=== PATIENT | male | born 1995 | race Caucasian/White ===

== ENCOUNTER 2024-12-21 01:44 | Emergency (ER) | payer MEDICAID ==
[~2024-12-21] VITALS: Ht 190.5 cm; Wt 83.2 kg
--- NOTE | 2024-12-21 01:58 | Physician Documentation ---
History of Present Illness ~ Chief Complaint: Abdominal Pain Stated Complaint: ABDOMINAL PAIN Time Seen by MD: 01:58 HPI Patient presents to the emergency room with right lower quadrant of acute onset proximally 1-1/2 hour prior to exam. No prior instances. Denies history of kidney stones. Denies history of intra-abdominal surgeries. Bowel movements reported to be regular no dysuria. Positive nausea with vomiting Medication Reconciliation Allergies: Coded Allergies: No Known Allergies (Unverified , 12/21/24) Review of Systems ROS All review of systems negative except as per HPI Physical Exam Vital Signs: Temperature: 97.7, Source: Oral, Heart Rate: 79, Respiratory Rate: 22, BP: 147/89, Pulse Oximetry: 100, Weight: 83.180 Oxygen Flow Rate: 0 Physical Exam General: Patient is awake, alert, oriented x4 in moderate distress Head: Normocephalic and atraumatic. Eyes: Conjunctival normal. EOMI. PERRL. ENT: Mucous membranes moist. Neck: Supple, trachea is midline. Chest: Clear to auscultation bilaterally without rales, rhonchi, or wheezes. There is no accessory muscle use or retractions. Cardiac: RRR without murmurs, gallops, or rubs. Abd: Soft, nondistended, positive tenderness to palpation to right lower quadrant Progress Results/Orders Results/Orders Orders - VELASQUEZ COY MD Ct Abdomen Pelvis (12/21/24 03:13) Completed Orders - VELASQUEZ COY MD Cbc/Diff (12/21/24 01:53) BMP (12/21/24 01:53) Lipase (12/21/24 01:53) CMP (12/21/24 01:53) Ketorolac Trometh 15mg/Ml Vial (Toradol (12/21/24 02:00) Morphine 4mg/Ml Inj. (Morphine Inj.) (12/21/24 02:00) Ondansetron Inj. (Zofran 4mg/2ml Vial) (12/21/24 02:00) Ua W/Microscopic, Cult If Ind (12/21/24 02:19) Ct Abdomen Pelvis (12/21/24 03:13) Medications Received in ER Medications (Trade) Dose Ordered Sig/Sue Route PRN Reason Start Time Stop Time Status Last Admin Dose Admin (Toradol injection) 15 mg ONCE ONCE IV 7/2/25 02:00 12/21/24 02:01 DC 12/21/24 02:06 15 MG (Zofran 4mg/2ml vial) 4 mg ONCE ONCE IV 12/21/24 02:00 12/21/24 02:01 DC 12/21/24 02:09 4 MG Vital Signs 12/21/24 12/21/24 12/21/24 12/21/24 01:50 02:06 02:37 02:39 Temp 97.7 Pulse 79 68 Resp 22 19 17 B/P (MAP) 147/89 147/89 (108) Pulse Ox 100 100 O2 Flow Rate 0 Laboratory Tests Test 12/21/24 01:56 12/21/24 02:19 White Blood Count 11.0 Red Blood Count 5.21 Hemoglobin 16.1 Hematocrit 45.5 Mean Corpuscular Volume 87.3 Mean Corpuscular Hemoglobin 30.9 Mean Corpuscular Hemoglobin Concent 35.4 Red Cell Distribution Width 12.5 Platelet Count 340 Mean Platelet Volume 7.8 Neutrophils (%) (Auto) 50.4 Lymphocytes (%) (Auto) 36.5 Monocytes (%) (Auto) 6.2 Eosinophils (%) (Auto) 6.3 H Basophils (%) (Auto) 0.6 Neutrophils # (Auto) 5.5 Lymphocytes # (Auto) 4.0 Monocytes # (Auto) 0.7 Eosinophils # (Auto) 0.7 Basophils # (Auto) 0.1 CBC Comment Sodium Level 143 Potassium Level 3.4 L Chloride Level 105 Carbon Dioxide Level 26.2 Anion Gap 12 Blood Urea Nitrogen 13 Creatinine 1.65 H Estimated GFR/1.73 m2 50 BUN/Creatinine Ratio 7.9 L Glucose Level 117 H Calcium Level 9.2 Total Bilirubin 0.5 Aspartate Amino Transf (AST/SGOT) 22 Alanine Aminotransferase (ALT/SGPT) 16 Alkaline Phosphatase 88 Total Protein 7.6 Albumin 4.4 Globulin 3.2 Albumin/Globulin Ratio 1.4 Lipase 55 Chemistry Comments Urine Specimen Description Voided Urine Color Yellow Urine Clarity Slightly cloudy Urine pH 6.0 Urine Specific [place] 1.025 Urine Protein Negative Urine Glucose (UA) Negative Urine Ketones Negative Urine Occult Blood Negative Urine Nitrite Negative Urine Bilirubin Negative Urine Urobilinogen 1.0 Urine Leukocyte Esterase Negative Urine RBC 0-2 Urine WBC 0-4 Urine Squamous Epithelial Cells Few Urine Uric Acid Crystals 1+ Urine Amorphous Urates 1+ Urine Bacteria None seen Urine Mucus Few Urine Culture Indicated Not ind Volume Urine Centrifuged 10 ml Urine Comment Medical Decision Making Findings Patient presents to the emergency room with flank pain as per HPI. Differentials include but are not limited to kidney stone, appendicitis, pyelonephritis, small-bowel obstruction, pancreatitis therefore emergent labs and imaging indicated. Labs reassuring as his CT scan. Unknown cause for patient's pain. Possible gas versus very small kidney stone. He is responding to therapy. ER precautions discussed Departure Disposition: 01 HOME / SELF CARE / HOMELESS Impression: Primary Impression: Abdominal pain Condition: Stable Discharge Instructions: Abdominal Pain (Nonspecific) Additional Instructions: Ibuprofen and Tylenol may be taken together for pain. Referrals: NO PRIMARY CARE PROVIDER (PCP) Education Educated: Patient Educated regarding: treatment, need for follow up Signature Scribe Signature: No scribe Attestation: The note accurately reflects work and decisions made by me.Velasquez Coy MD 12/21/24 04:12 VELASQUEZ COY MD Dec 21, 2024 01:58
[2024-12-21 02:03] LABS: MEAN PLATELET VOLUME 7.8 FL (7.4-10.4); RED CELL DISTRIBUTION WIDTH 12.5 % (11.5-14.5)
[2024-12-21] MEDS: ketorolac trometh 15mg/ml vial 15 MG/ML ML IV ONE (02:06)
[2024-12-21] MEDS: morphine 4 MG/ML inj SYRINge IV ONE (02:08)
[2024-12-21] MEDS: ondansetron/PF 4mg/2ml inj IV ONE (02:09)
[2024-12-21 02:17] LABS: CREATININE 1.65 MG/DL (0.60-1.10); TOTAL CARBON DIOXIDE 26.2 MMOL/L (24-32); eCRCL 79 ML/MIN; eGFR 50 ML/MIN
[2024-12-21 02:35] LABS: LEUKOCYTE ESTERASE ,URINE NEGATIVE (Neg); NITRITES, URINE NEGATIVE (Neg); OCCULT BLOOD,URINE NEGATIVE (Neg)
[2024-12-21 02:36] LABS: UA COLLECTION TYPE VOIDED
[2024-12-21 02:37] LABS: AMORPHOUS URATES 1+; MUCUS STRANDS FEW /LPF (Neg); SQUAMOUS EPITHELIAL CELL,UR FEW /LPF (FEW)
[2024-12-21 02:38] LABS: URIC ACID CRYSTALS 1+ /HPF (NEGATIVE)
--- NOTE | 2024-12-21 03:58 | RADIOLOGY REPORT ---
Exam: CT CT ABDOMEN PELVIS History: rlq pain Comparison Study: None Technique: Multidetector spiral CT of the abdomen was performed from lung bases to pubic symphysis. I maging was performed without IV contrast. Axial, coronal and sagittal multiplanar reformats were obta ined from the axial data set by the technologist. Radiation Dose : 1. Abdomen/Pelvis: CTDIvol 15.21 mGy, DLP 874.4 mGy*cm. Findings: Evaluation of solid organs is limited due to lack of intravenous contrast use. Lung Bases: No acute or significant lung base finding. Normal heart size. No pleural or pericardial effusion. Liver: The liver is normal in size. No focal lesions. Gallbladder and Biliary Tree: Unremarkable Spleen: Moderately enlarged, measuring 13.1 cm in craniocaudal dimension. Pancreas: The pancreas is grossly normal in appearance. Adrenal Glands: Unremarkable Kidneys: Kidneys are grossly normal without calculi or hydronephrosis. Bladder: Grossly unremarkable for degree of distention. Bowel: The stomach is grossly normal in appearance. Small bowel and colon are normal in caliber and d istribution. The appendix is normal. Ascites: Absent Lymphadenopathy: No mesenteric, retroperitoneal or periportal lymphadenopathy. Abdominal Wall and Mesentery: Unremarkable. Vasculature: The visualized abdominal aorta is normal in size and caliber. Evaluation of abdominal a nd pelvic vessels is limited due to lack of intravenous contrast. Pelvic Organs: Unremarkable Musculoskeletal: No aggressive focal bony lesions, acute fractures or dislocation. IMPRESSION: 1. No acute abdominal or pelvic findings. 2. Borderline splenomegaly. Radiation optimization: All CT scans at this facility use at least one of these dose optimization flavia hniques: automated exposure control mA and/or kV adjustment per patient size (includes targeted exam s where dose is matched to clinical indication) or iterative reconstruction.
[2024-12-21 04:32] VITALS: BP 151/86; PULSE 87; RESP 15; TEMP 97.7; O2SAT 100
== END 2024-12-21 04:36 | disposition home or self-care (01) ==
LOC: ER 01:44
DX: R10.31 Right lower quadrant pain (principal)
CPT/HCPCS: 36415; 74176; 80053; 81001; 83690; 85025; 96374; 96375; 99285; J1885; J2405; J2270